=== PATIENT | female | born 1980 | race Caucasian/White ===

== ENCOUNTER → 2017-11-30 | Outpatient (CLI) | payer OTHER | END | disposition home or self-care (01) | LOC: MAMMO 07:45 | DX: Z12.31 Encounter for screening mammogram for malignant neoplasm of breast (principal) | CPT/HCPCS: 77063; 77067 ==

== ENCOUNTER → 2018-10-18 | Outpatient (CLI) | payer OTHER ==
[2018-10-18 09:20] LABS: HEMATOCRIT 44.7 % (36.0-47.0); RED BLOOD COUNT 5.16 x10^6/uL (3.50-5.40); RED CELL DISTRIBUTION WIDTH 13.2 % (11.5-14.5); WHITE BLOOD COUNT 7.1 x10^3/uL (4.0-11.0)
[2018-10-18 09:38] LABS: CREATININE 0.8 mg/dL (0.6-1.0); GFR 80.3; POTASSIUM 4.6 mmol/L (3.5-5.1)
[2018-10-18 09:43] LABS: CHOLESTEROL/HDL RATIO 3.2
== END | disposition home or self-care (01) ==
LOC: LAB 08:41
PROVIDERS: ATTEND Family Medicine
DX: Z00.00 Encounter for general adult medical examination without abnormal findings (principal); Z68.43 Body mass index [BMI] 50.0-59.9, adult
CPT/HCPCS: 36415; 80048; 80061; 84443; 85027

== ENCOUNTER → 2018-10-28 | Outpatient (CLI) | payer OTHER ==
--- NOTE | 2018-10-28 08:57 | RAD ---
Examination: PELVIS W/TV History: LLQ PAIN Comparison/Correlation: None Findings: Transabdominal and transvaginal pelvic ultrasound exam was performed. Transvaginal technique was utilized to better assess the adnexal structures. Uterus measures 9.2 cm x 5.2 cm x 4.8 cm. Myometrium is hypoechoic particularly at the fundus. Globular morphology of the uterus noted. Endometrial thickness of 0.7 cm noted. Intrauterine device is in place. There is no pelvic free fluid. Right adnexa measures 2.9 cm x 1.9 cm x 1.6 cm. Left ovary is obscured by bowel gas. No suspicious pelvic mass is suggested. Impression: Intrauterine device is in place. Diffuse fibroid involvement of the uterus. Electronically signed by: Segre Manzano MD (10/28/2018 8:55 AM) [id number]
--- NOTE | 2018-10-28 09:04 | RAD ---
Examination: ABDOMEN COMPLETE History: llq pain Comparison/Correlation: None Findings: Complete abdominal ultrasound exam was performed. Mild fatty infiltration of the liver is present. Portal venous flow is unremarkable. Liver length is 17 cm. Cholecystectomy noted. Common bile duct measures 0.4 cm diameter. Right kidney measures 10.7 cm x 5.2 cm 4.9 cm. Left kidney measures 11.9 cm x 5 cm diameter. No hydronephrosis. No nephrolithiasis. Renal contours are unremarkable. Proximal pancreas is unremarkable. Distal pancreas is obscured by bowel gas. No ascites. Spleen is unremarkable. Impression: Fatty infiltration of liver. No acute process. Cholecystectomy. Electronically signed by: Serge Manzano MD (10/28/2018 9:01 AM) [id number]
== END | disposition home or self-care (01) ==
LOC: US 06:13
PROVIDERS: ATTEND Family Medicine
DX: K76.0 Fatty (change of) liver, not elsewhere classified (principal); D25.9 Leiomyoma of uterus, unspecified
CPT/HCPCS: 76700; 76830; 76856

== ENCOUNTER → 2018-11-19 | Outpatient (CLI) | payer OTHER ==
[~2018-11-19] MED LIST: IOHEXOL 240 MG/ML 50ML VIAL. PO ONE; IOHEXOL 300 MG/ML 100ML VIAL. IV ONE
--- NOTE | 2018-11-19 11:30 | RAD ---
EXAM: CT Abdomen and Pelvis with IV contrast CLINICAL HISTORY: Left lower quadrant pain. COMPARISON: Ultrasound abdomen, ultrasound pelvis 10/28/2018 TECHNIQUE: Helical CT of the abdomen and pelvis was performed following the administration of intravenous contrast. Axial, coronal and sagittal reformatted images were generated. PQRS compliance statement - One or more of the following individualized dose reduction techniques were utilized for this study: 1. Automated exposure control 2. Adjustment of the mA and/or kV according to patient size 3. Use of iterative reconstruction technique FINDINGS: Lower chest: Lung bases are clear. Abdomen and Pelvis: No focal liver lesion. Liver is enlarged measuring 21.4 cm in length. There has been a cholecystectomy. No biliary ductal dilatation. Pancreas is unremarkable. Adrenal glands are normal. Spleen is normal in appearance. Small splenule is seen. Symmetric nephrograms. No focal renal lesion. No hydronephrosis. No hydroureter. Evaluation of uterine adnexa are limited. IUD is seen within the uterus. The bladder is decompressed, otherwise unremarkable. Appendix is normal. Moderate colonic stool content is seen. No evidence of bowel obstruction. No abdominal or pelvic lymphadenopathy. No abdominal or pelvic ascites. Bones: Sclerotic bone lesions are seen within the spine, of uncertain clinical significance. For example a 1.2 cm T10 lesion is seen and a L3 lesion measures 2 x 2.6 cm. A 1.7 cm right iliac wing sclerotic lesion is seen. SI joint degenerative changes are noted. IMPRESSION: 1. Sclerotic foci within several vertebral bodies and right iliac bone are nonspecific. Sclerotic bone lesions may be seen with metastatic disease. This can be correlated for possible primary malignancy and consider further evaluation with bone scan. 2. No free or loculated abdominal or pelvic fluid collection. 3. Moderate colonic stool content is seen. No evidence for bowel obstruction. 4. An IUD seen within the uterus. 5. Hepatomegaly Electronically signed by: Valdez Wynne MD (11/19/2018 11:27 AM) [id number]
== END | disposition home or self-care (01) ==
LOC: CT 08:39
PROVIDERS: ATTEND Family Medicine
DX: R16.0 Hepatomegaly, not elsewhere classified (principal); G95.89 Other specified diseases of spinal cord; M89.8X8 Other specified disorders of bone, other site; Z90.49 Acquired absence of other specified parts of digestive tract
CPT/HCPCS: 74177

== ENCOUNTER → 2018-11-22 | Outpatient (CLI) | payer OTHER ==
[2018-11-22 09:21] LABS: ALBUMIN 3.9 g/dL (3.4-5.0); ALBUMIN/GLOBULIN RATIO 1.1 (1.0-1.7); CALCIUM 9.3 mg/dL (8.5-10.1); CREATININE 0.8 mg/dL (0.6-1.0); GFR 80.3; POTASSIUM 4.6 mmol/L (3.5-5.1); TOTAL PROTEIN 7.5 g/dL (6.4-8.2)
== END | disposition home or self-care (01) ==
LOC: LAB 08:46
PROVIDERS: ATTEND Family Medicine
DX: M89.9 Disorder of bone, unspecified (principal)
CPT/HCPCS: 36415; 80053

== ENCOUNTER → 2018-12-02 | Outpatient (CLI) | payer OTHER ==
--- NOTE | 2018-12-02 09:45 | RAD ---
DATE: 12/02/2018 EXAM: MAMMO GALEN SCREENING BILATERAL HISTORY: Routine screening COMPARISON: 11/30/2017 This study was interpreted with the benefit of Computerized Aided Detection (CAD). Breast Density: SCATTERED The breast parenchyma shows scattered fibroglandular densities. Breast parenchyma level B. FINDINGS: 2-D and 3-D tomosynthesis imaging was performed in CC and MLO projections. No suspicious breast density or architectural distortion is seen. No suspicious microcalcifications are evident. IMPRESSION: There is no mammographic evidence of malignancy in either breast. BI-RADS CATEGORY: 1 NEGATIVE RECOMMENDED FOLLOW-UP: 12M 12 MONTH FOLLOW-UP PQRS compliance statement: Patient information was entered into a reminder system with a target due date for the next mammogram. Mammography is a sensitive method for finding small breast cancers, but it does not detect them all and is not a substitute for careful clinical examination. A negative mammogram does not negate a clinically suspicious finding and should not result in delay in biopsying a clinically suspicious abnormality. "Our facility is accredited by the [employer] Mammography Program."
== END | disposition home or self-care (01) ==
LOC: MAMMO 08:24
PROVIDERS: ATTEND Obstetrics & Gynecology
DX: Z12.31 Encounter for screening mammogram for malignant neoplasm of breast (principal)
CPT/HCPCS: 77063; 77067

== ENCOUNTER → 2019-05-29 | Outpatient (CLI) | payer OTHER ==
[2019-05-30 17:09] LABS: RUBELLA IGG ANTIBODY 2.53 index (Immune >0.99)
== END | disposition home or self-care (01) ==
LOC: LAB 12:15
PROVIDERS: ATTEND Family Medicine
DX: Z02.89 Encounter for other administrative examinations (principal)
CPT/HCPCS: 36415; 86706; 86735; 86762; 86765; 86787; 87340

== ENCOUNTER → 2019-07-25 | Outpatient (CLI) | payer OTHER | END | disposition home or self-care (01) | LOC: LAB 10:34 | PROVIDERS: ATTEND Family Medicine | DX: Z01.84 Encounter for antibody response examination (principal) | CPT/HCPCS: 36415; 86706; 86735; 86762; 86765 ==

== ENCOUNTER → 2019-07-25 | Outpatient (CLI) | payer OTHER ==
[2019-07-25 11:12] LABS: BASO # 0.1 x10^3/uL (0.0-0.2); BASO % 2 % (0-3); EOS # 0.2 x10^3/uL (0.0-0.7); EOS % 4 % (0-3); HEMATOCRIT 45.5 % (36.0-47.0); HEMOGLOBIN 15.4 g/dL (12.0-15.5); LYMPH % 19 % (24-48); MEAN CORPUSCULAR HEMOGLOBIN 29 pg (25-35); MEAN CORPUSCULAR HGB CONC 34 g/dL (31-37); MEAN CORPUSCULAR VOLUME 86 fL (79-100); MONO # 0.3 x10^3/uL (0.0-1.1); MONO % 5 % (0-9); NEUT # 3.7 x10^3/uL (1.8-7.7); NEUT % 70 % (31-73); PLATELET COUNT 314 x10^3/uL (140-400); RED BLOOD COUNT 5.31 x10^6/uL (3.50-5.40); RED CELL DISTRIBUTION WIDTH 13.2 % (11.5-14.5); WHITE BLOOD COUNT 5.2 x10^3/uL (4.0-11.0)
[2019-07-25 11:42] LABS: ALBUMIN 4.3 g/dL (3.4-5.0); ALBUMIN/GLOBULIN RATIO 1.2 (1.0-1.7); CALCIUM 9.4 mg/dL (8.5-10.1); CREATININE 0.8 mg/dL (0.6-1.0); GFR 79.9; POTASSIUM 4.4 mmol/L (3.5-5.1); TOTAL BILIRUBIN 1.1 mg/dL (0.2-1.0); TOTAL PROTEIN 7.8 g/dL (6.4-8.2)
[2019-07-25 22:07] LABS: FSH 7.8 mIU/mL (.); LUTEINIZING HORMONE 5.2 mIU/mL (.); PROGESTERONE <0.1 ng/mL (.)
[2019-07-26 00:07] LABS: HEMOGLOBIN A1C 5.7 % (4.8-5.6)
== END | disposition home or self-care (01) ==
LOC: LAB 10:39
PROVIDERS: ATTEND Nurse Practitioner Women's Health
DX: R23.2 Flushing (principal)
CPT/HCPCS: 36415; 80053; 82670; 83001; 83002; 83036; 84144; 84443; 85025

== ENCOUNTER 2019-08-22 17:39 | Emergency (ER) | payer OTHER ==
[~2019-08-22] VITALS: Ht 172.7 cm; Wt 145.5 kg
--- NOTE | 2019-08-22 19:08 | RAD ---
Exam: Right lower extremity venous duplex study INDICATION: Leg swelling TECHNIQUE: Using a combination of real-time ultrasound imaging and color-flow and pulse Doppler imaging techniques along with graded compression and augmentation, duplex evaluation of the deep venous systems of rightlower extremity was performed. Multiple images were obtained. Findings: Occlusive thrombus is noted within the greater saphenous vein at the level of the calf measuring approximately 10 cm. There is no sonographic evidence for deep venous thrombosis involving the visualized deep venous structures of the right lower extremity. IMPRESSION: 1. Superficial occlusive thrombus within the greater saphenous vein at the level of the calf. 2. No DVT in the right lower extremity. Electronically signed by: Clara Flannery MD (08/22/2019 7:05 PM) [id number]
[2019-08-22 19:19] VITALS: BP 151/86
[2019-08-22] MEDS ORDERED: ONDANSETRON ODT 4 MG TAB.RAPDIS. PO ONE (19:45)
--- NOTE | 2019-08-22 19:51 | PHYS DOC ---
Past Medical History Past Medical History: Hypertension (TAMICA ALVARADO APRN) Past Surgical History: Cholecystectomy, (TAMICA ALVARADO APRN) Smoking Status: Never Smoker Alcohol Use: None (TAMICA ALVARADO APRN) Attending Signature I have participated in the care of this patient and I have reviewed and agree with all pertinent clinical information above including history, exam, and recommendations. (TIERRA GALLOWAY MD) Adult General Chief Complaint Chief Complaint: LOWER EXT PAIN HPI HPI Patient is a 39 year old female with history of hypertension who presents to the ED today complaining of a knot on the right lozoya that she noted a couple weeks ago with slight redness and pain shooting to her right toes. Patient states symptoms of got worse in the last couple days. 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 Patient denies any injury, denies any chance she is . Denies any fever. Denies any use of hormones, denies any recent hospitalizations. Denies any personal family history of DVTs. Reports being on mirena (TAMICA ALVARADO APRN) Review of Systems Review of Systems Constitutional: Denies fever or chills [] Musculoskeletal: Reports a note on the right lower extremity Integument: Denies rash or skin lesions [] Neurologic: Denies headache, focal weakness or sensory changes [] All other systems were reviewed and found to be within normal limits, except as documented in this note. (TAMICA ALVARADO APRN) Current Medications Current Medications Current Medications Medications (Trade) Dose Ordered Sig/Ben Start Time Stop Time Status Last Admin Dose Admin Ondansetron HCl (Zofran Odt) 4 mg 1X ONCE 08/22/19 19:45 08/22/19 19:46 DC 08/22/19 19:17 4 MG (TIERRA GALLOWAY MD) Allergies Allergies Allergies Coded Allergies Type Severity Reaction Last Updated Verified No Known Drug Allergies 11/19/18 No (TIERRA GALLOWAY MD) Physical Exam Physical Exam Constitutional: Well developed, well nourished, no acute distress, non-toxic appearance. [] Skin: Warm, dry, no erythema, no rash. [] Back: No tenderness, no CVA tenderness. [] Extremities: Morbidly obese patient with multiple large varicose veins to bilateral lower extremities. Mild soft tissue swelling on the anterior aspect of the proximal lozoya. Negative Homans sign to the right lower extremity. +2 right pedal pulse, ROM intact Neurologic: Alert and oriented X 3, normal motor function, normal sensory function, no focal deficits noted. [] Psychologic: Affect normal, judgement normal, mood normal. [] (TAMICA ALVARADO APRN) Current Patient Data Vital Signs Vital Signs Date Time Temp Pulse Resp B/P (MAP) Pulse Ox O2 Delivery O2 Flow Rate FiO2 08/22/19 19:19 107 18 151/86 (107) 98 Room Air 08/22/19 18:10 97.8 97.8 (TIERRA GALLOWAY MD) EKG EKG [] (TAMICA ALVARADO APRN) Radiology/Procedures Radiology/Procedures []PROCEDURE: VENOUS LOWER EXTREMITY RIGHT Exam: Right lower extremity venous duplex study INDICATION: Leg swelling TECHNIQUE: Using a combination of real-time ultrasound imaging and color-flow and pulse Doppler imaging techniques along with graded compression and augmentation, duplex evaluation of the deep venous systems of rightlower extremity was performed. Multiple images were obtained. Findings: Occlusive thrombus is noted within the greater saphenous vein at the level of the calf measuring approximately 10 cm. There is no sonographic evidence for deep venous thrombosis involving the visualized deep venous structures of the right lower extremity. IMPRESSION: 1. Superficial occlusive thrombus within the greater saphenous vein at the level of the calf. 2. No DVT in the right lower extremity. Electronically signed by: Clara Quinteros MD (08/22/2019 7:05 PM) [id number] DICTATED and SIGNED BY: CLARA QUINTEROS MD DATE: 08/22/191904 (TAMICA ALVARADO APRN) Course & Med Decision Making Course & Med Decision Making Pertinent Labs and Imaging studies reviewed. (See chart for details) This is a 39-year-old female patient presenting to the ED today complaining of a knot to the right lower extremity. Venous Doppler of the right lower extremity was negative for DVT, noted for superficial thrombus. Consulted with Dr. Galloway. Discharged to home with recommendation for aspirin and follow-up with PCP in the next week. (TAMICA ALVARADO APRN) Dragon Disclaimer Dragon Disclaimer This electronic medical record was generated, in whole or in part, using a voice recognition dictation system. (TAMICA ALVARADO APRN) Departure Departure Impression: Primary Impression: Superficial thrombosis of leg Additional Impression: Varicose veins of lower extremity Disposition: HOME, SELF-CARE Condition: STABLE Referrals: TATO WALTERS MD (PCP) follow up next week Patient Instructions: Varicose Veins Additional Instructions: You were evaluated in the emergency room and noted to have superficial thrombosis to the right lower extremity. You can take aspirin 325 mg daily for 2 weeks for this and consider following up with the primary care doctor as soon as you can. Try to wear compression stockings if you can find appropriate size. Try and ice and elevate your extremities. Problem Qualifiers Primary Impression: Superficial thrombosis of leg Laterality: right Qualified Codes: I82.811 - Embolism and thrombosis of superficial veins of right lower extremity Additional Impression: Varicose veins of lower extremity Varicose vein complication: unspecified Laterality: right Qualified Codes: I83.91 - Asymptomatic varicose veins of right lower extremity TAMICA ALVARADO APRN Aug 22, 2019 19:51 TIERRA GALLOWAY MD Aug 22, 2019 22:27
== END 2019-08-22 20:00 | disposition home or self-care (01) ==
LOC: ER 17:39
DX: I82.811 Embolism and thrombosis of superficial veins of right lower extremity (principal); I83.91 Asymptomatic varicose veins of right lower extremity; M79.674 Pain in right toe(s); L53.9 Erythematous condition, unspecified; R22.41 Localized swelling, mass and lump, right lower limb; I10 Essential (primary) hypertension; Z90.49 Acquired absence of other specified parts of digestive tract; Z98.890 Other specified postprocedural states
CPT/HCPCS: 93971; 99284; Q0162

== ENCOUNTER → 2019-08-27 | Outpatient (CLI) | payer OTHER ==
[2019-08-22 19:19] VITALS: BP 151/86
--- NOTE | 2019-08-27 12:30 | KCIC ---
Right lower extremity venous duplex study 08/27/2019 12:25 PM Clinical History: Increasing right lower extremity pain. Evaluate for progression of superficial venous thrombosis, or presence of deep venous thrombosis. Technique: Using a combination of real time ultrasound imaging and color-flow and pulse Doppler imaging techniques, including spectral analysis, graded compression and augmentation, duplex evaluation of the deep venous system of the right lower extremity was performed. Multiple images were obtained. Findings: There is persistent superficial venous thrombosis involving the saphenous vein from the knee distally. Thrombosed varicosities are also seen in the distal leg. There is no sonographic evidence of deep venous thrombosis involving the visualized deep venous structures of the right lower extremity Impression: 1. Similar superficial venous thrombosis involving the great saphenous vein, and associated varicosities 2.No evidence of deep venous thrombosis involving the right lower extremity Electronically signed by: Jesse Mckeon MD (08/27/2019 12:26 PM) [facility]
== END | disposition home or self-care (01) ==
LOC: KCIC US 11:22
PROVIDERS: ATTEND Family Medicine
DX: I82.811 Embolism and thrombosis of superficial veins of right lower extremity (principal)
CPT/HCPCS: 93971

== ENCOUNTER → 2019-11-26 | Outpatient (CLI) | payer OTHER ==
--- NOTE | 2019-11-27 07:30 | RAD ---
MR#: [id number] Date of Study: 11/26/2019 Ordering Physician: SILAS CASILLAS, Referring Physician: SILAS CASILLAS, Tech: HALIMA Nguyen, RDAZ, RTR APPROVED REPORT Bilateral Lower Extremity Venous Study for DVT Patient Location: OUT-PATIENT Indications Lower Extremity Pain: Varicose Veins Findings Technically limited study due to the patient's body habitus The bilateral common femoral veins and proximal superficial femoral veins are compressible on graysca le images. The bilateral popliteal veins are compressible on grayscale images. The mid to distal robles perficial femoral veins in the below-knee veins are not well visualized and grossly appear to demonst rate spontaneous flow on color Doppler imaging. Critical Notification Critical Value: No <Conclusion> 1. Negative for DVT, technically limited study. Signed by : Silas Casillas, Electronically Approved : 11/27/2019 07:30:04
--- NOTE | 2019-11-27 07:35 | RAD ---
MR#: [id number] Date of Study: 11/26/2019 Ordering Physician: SILAS CASILLAS, Referring Physician: SILAS CASILLAS, Tech: HALIMA Nguyen, RDMS, RTR APPROVED REPORT Patient Location : OUT-PATIENT Indications Varicose Veins Skin Changes Risk Factors Obesity Prior Phlebitis/DVT Medications xeralto Findings Technically limited study due to the patient's body habitus The left great saphenous vein measures 10.2 mm and has a maximum reflux time of 2.2 seconds. The gre ater saphenous vein is tortuous and superficial at the level of the knee on the left side. The right great saphenous vein measures 11.8 mm and has a maximum reflux time of 1.7 seconds. The mi d to distal right great saphenous vein appears to be thrombosed and multiple superficial varicosities are noted. The bilateral lesser saphenous veins do not show any evidence of reflux. There are bilateral anterior accessory saphenous veins which also demonstrated reflux of greater than 1 second measuring approximately 4.2 mm bilaterally. Critical Notification Critical Value: No <Conclusion> 1. Positive for reflux in the bilateral greater saphenous veins. 2. Positive for reflux in the bilateral anterior accessory saphenous veins 3. Negative for reflux in the bilateral lesser saphenous veins 4. Partial thrombosis of the right great saphenous vein. Signed by : Silas Casillas, Electronically Approved : 11/27/2019 07:35:29
== END | disposition home or self-care (01) ==
LOC: US 10:26
PROVIDERS: ATTEND Internal Medicine Cardiovascular Disease
DX: I82.811 Embolism and thrombosis of superficial veins of right lower extremity (principal); Z79.01 Long term (current) use of anticoagulants
CPT/HCPCS: 93970

== ENCOUNTER → 2019-11-26 | Outpatient (CLI) | payer OTHER ==
--- NOTE | 2019-11-26 11:44 | CARD ---
MR#: [id number] Date of Study: 11/26/2019 Ordering Physician: SILAS CASILLAS, Referring Physician: SILAS CASILLAS, Tech: Poornima Casey BRIAN APPROVED REPORT EXAM: Two-dimensional and M-mode echocardiogram with Doppler and color Doppler. Other Information Quality : Fair INDICATION Hypertension/HCVD Morbid Obesity 2D DIMENSIONS RVDd3.1 (2.9-3.5cm)Left Atrium(2D)3.8 (1.6-4.0cm) IVSd1.1 (0.7-1.1cm)Aortic Root(2D)2.7 (2.0-3.7cm) LVDd6.0 (3.9-5.9cm)LVOT Diameter2.1 (1.8-2.4cm) PWd1.1 (0.7-1.1cm)LVDs5.2 (2.5-4.0cm) FS (%) 12.3 %SV46.5 ml LVEF(%)26.1 (>50%) M-Mode DIMENSIONS LVDd6.01 (4.0-5.6cm)FS (%) 13 % LVDs5.20 (2.0-3.8cm)ESV(Teich)129.5 ml LVEF(%)28 (>50%) Aortic Valve AoV Peak Dustin.145.3cm/sAoV VTI28.6cm AO Peak GR.8.4mmHgLVOT Peak Dustin.100.3cm/s AO Mean GR.5mmHgAVA (VMAX)2.38cm2 Mitral Valve MV E Juoaqztc639.8cm/sMV DECEL LTKY877fj MV A Gyrmmpqz07.7cm/sE/A Ratio2.0 Tricuspid Valve TR P. Zwtdtzku683ir/sRAP NJRLLIEF1coMr TR Peak Gr.79zlFuPBIF89ajDb Pulmonary Vein S1 Udtawqyj30.8cm/sD2 Rznlpqmc46.7cm/s LEFT VENTRICLE The left ventricle is normal size. There is normal left ventricular wall thickness. Left ventricle sy stolic function is normal. The Ejection Fraction is 55-60%. There is normal LV segmental wall motion. The left ventricular diastolic function and filling is normal for age. RIGHT VENTRICLE The right ventricle is normal size. The right ventricular systolic function is normal. ATRIA The left atrium size is normal. The right atrium size is normal. The interatrial septum is intact wit h no evidence for an atrial septal defect or patent foramen ovale as noted on 2-D or Doppler imaging. AORTIC VALVE The aortic valve is calcified but opens well. Doppler and Color Flow revealed no significant aortic r egurgitation. There is no significant aortic valvular stenosis. MITRAL VALVE The mitral valve is normal in structure and function. There is no evidence of mitral valve prolapse. There is no mitral valve stenosis. Doppler and Color-flow revealed trace mitral regurgitation. TRICUSPID VALVE The tricuspid valve is normal in structure and function. Doppler and Color Flow revealed trace tricus pid regurgitation. The PA pressure was estimated at 26 mmHg. There is no tricuspid valve stenosis. PULMONIC VALVE The pulmonic valve is not well visualized. Doppler and Color Flow revealed no pulmonic valvular regur gitation. There is no pulmonic valvular stenosis. GREAT VESSELS The aortic root is normal in size. The ascending aorta is not well seen. The IVC is normal in size an d collapses >50% with inspiration. PERICARDIAL EFFUSION There is no evidence of significant pericardial effusion. Critical Notification Critical Value: No <Conclusion> Left ventricle systolic function is normal. The Ejection Fraction is 55-60%. There is normal LV segmental wall motion. Trace mitral regurgitation. Trace tricuspid regurgitation. The PA pressure was estimated at 26 mmHg. There is no evidence of significant pericardial effusion. Signed by : Lopez Alvarez, Electronically Approved : 11/26/2019 11:44:03
== END | disposition home or self-care (01) ==
LOC: ECHO 10:21
PROVIDERS: ATTEND Internal Medicine Cardiovascular Disease
DX: I35.8 Other nonrheumatic aortic valve disorders (principal); I10 Essential (primary) hypertension; E66.01 Morbid (severe) obesity due to excess calories
CPT/HCPCS: 93306

== ENCOUNTER → 2019-12-11 | Outpatient (CLI) | payer OTHER ==
--- NOTE | 2019-12-12 08:25 | RAD ---
INDICATION: 39 years of age asymptomatic female patient presents for screening mammography. TECHNIQUE: Full field craniocaudal and mediolateral oblique images of both breasts were obtained using digital technique with tomosynthesis and also analyzed with computer-aided detection software. COMPARISON: Prior mammographic imaging dating back to 11/30/2017. BREAST COMPOSITION: Category B: There are scattered fibroglandular densities. FINDINGS: A skin marker overlies the right breast. The parenchymal pattern appears stable. No suspicious masses, microcalcifications or architectural distortion is present to suggest malignancy in either breast. The visualized axillae are unremarkable. IMPRESSION: No mammographic evidence of malignancy. RECOMMENDATION: Annual screening mammography is recommended, unless clinically indicated sooner based on symptoms or change in physical exam. BIRADS 2: BENIGN Electronically signed by: Valdez Wynne MD (12/12/2019 8:22 AM) [facility]
== END | disposition home or self-care (01) ==
LOC: MAMMO 13:30
PROVIDERS: ATTEND Family Medicine
DX: Z12.31 Encounter for screening mammogram for malignant neoplasm of breast (principal)
CPT/HCPCS: 77063; 77067

== ENCOUNTER → 2019-12-31 | Outpatient (CLI) | payer OTHER ==
--- NOTE | 2019-12-31 11:54 | RAD ---
MR#: [id number] Date of Study: 12/31/2019 Ordering Physician: SILAS CASILLAS, Referring Physician: SILAS CASILLAS, Tech: Rafi Epperson MBA, RDMS, RVT, RDCS, RTR APPROVED REPORT Bilateral Lower Extremity Venous Study for DVT Patient Location: OUT-PATIENT Indications S/P B/L VENASEALS Vein Imaging (Right) CFV (R): Compressible SFJ (R): Compressible FEM (R): Compressible POP (R): Compressible DFV (R): Compressible PTV (R): Spontaneous GSV (R): Absent Flow Peroneals (R): Spontaneous Vein Imaging (Left) CFV (L): Compressible SFJ (L): Compressible FEM (L): Compressible POP (L): Compressible DFV (L): Compressible PTV (L): Spontaneous GSV (L): Absent Flow Peroneals (L): Spontaneous Doppler Evaluation (Right) CFV (R): Spontaneous POP (R):Spontaneous Doppler Evaluation (Left) CFV (L):Spontaneous POP (L):Spontaneous Findings Grayscale images of the bilateral saphenofemoral junctions did not reveal any obvious evidence of thr ombus. The bilateral greater saphenous veins are notable for recent ablation with thrombus consisten t with recent procedure. There is a incidental right sided Zapata's cyst noted in the popliteal fossa measuring approximately 5 .1 cm. No evidence of DVT is demonstrated from the common femoral vein to the below-knee veins bilaterally w ith normal compressibility noted. Critical Notification Critical Value: No <Conclusion> 1. Negative for DVT in the bilateral lower extremities 2. Successful bilateral GSV ablation. Signed by : Silas Casillas, Electronically Approved : 12/31/2019 11:54:13
== END ==
LOC: US 09:38
PROVIDERS: ATTEND Internal Medicine Cardiovascular Disease
DX: I87.2 Venous insufficiency (chronic) (peripheral) (principal); M71.21 Synovial cyst of popliteal space [Baker], right knee
CPT/HCPCS: 93970

== ENCOUNTER → 2020-01-06 | Outpatient (CLI) | payer OTHER | END | disposition home or self-care (01) | LOC: SPEC 11:23 | PROVIDERS: ATTEND Obstetrics & Gynecology | DX: Z01.419 Encounter for gynecological examination (general) (routine) without abnormal findings (principal) | CPT/HCPCS: 88175 ==

== ENCOUNTER → 2020-02-24 | Outpatient (CLI) | payer OTHER ==
--- NOTE | 2020-02-25 11:55 | SLEEP ---
DATE OF STUDY: 02/24/2020 SLEEP STUDY ATTENDING PHYSICIAN: Silas Rich MD The patient is 39 years old who weighs 330 pounds with a BMI of 50. The patient's [place] score was 11. The patient underwent diagnostics sleep study performed at [facility]. During the night study, the patient spent 431 minutes in bed and slept for 303 minutes with a sleep efficiency of 70%. Sleep latency was 38 minutes with a REM latency of 175 minutes. Sleep architecture showed increased stage 1 sleep, normal stage 2 sleep, increased slow wave and reduced REM sleep. During the night study, the patient had no obstructive apneas. There were 6 mixed apneas and 3 central apneas and 5 hypopneas. The patient's AHI was 3 per hour, supine AHI 1 per hour and REM AHI of 10 per hour. EKG monitoring revealed normal sinus rhythm, average heart rate was 77 beats per minute, no sustained arrhythmias observed. PLMS were seen at index of 13 per hour and 2 per hour caused EEG arousals. Nocturnal oximetry study revealed a mean oxygen saturation of 94% with the lowest of 87%. Only 3.8% of time oxygen saturation remained between 80% and 89%. Due to low AHI, the patient did not meet the split night criteria for CPAP initiation. IMPRESSION: 1. No clinically significant sleep disorder breathing. The patient's AHI for the entire night was 3 per hour. 2. No clinically significant nocturnal hypoxia. 3. Mild PLMS without any significant EEG arousals. This does not need to be treated. RECOMMENDATIONS: 1. The patient did not meet the criteria for CPAP initiation. 2. If the patient remains clinically symptomatic, then consider ruling out other disorders such as narcolepsy or idiopathic hypersomnia and consider doing MSLT if clinically indicated. 3. Weight loss is strongly advised. 4. Avoid [employer]ER depressants. 5. Cautioned regarding driving until the patient's hypersomnia is resolved. SOULEYMANE OSBORN MD DR: VIKASH/sincere JOB#: [id number] / [id number] SILAS Casanova MD
== END | disposition home or self-care (01) ==
LOC: SLPLAB 18:38
PROVIDERS: ATTEND Internal Medicine Critical Care Medicine
DX: G47.33 Obstructive sleep apnea (adult) (pediatric) (principal)
CPT/HCPCS: 95810

== ENCOUNTER → 2020-05-23 | Outpatient (CLI) | payer OTHER | LOC: LAB 10:15 | PROVIDERS: ATTEND Internal Medicine Pulmonary Disease | DX: U07.1 COVID-19 (principal); R05 Cough; R51.9 Headache, unspecified; R09.81 Nasal congestion; M79.10 Myalgia, unspecified site; R06.02 Shortness of breath | CPT/HCPCS: U0003 ==

== ENCOUNTER → 2020-07-06 | Outpatient (CLI) | payer OTHER | LOC: SPEC 11:36 | PROVIDERS: ATTEND Obstetrics & Gynecology | DX: R87.619 Unspecified abnormal cytological findings in specimens from cervix uteri (principal) | CPT/HCPCS: 88175 ==

== ENCOUNTER → 2020-12-28 | Outpatient (CLI) | payer OTHER ==
--- NOTE | 2020-12-28 09:40 | RAD ---
PROCEDURE: MG BILAT SCREEN+GALEN HISTORY: The patient is 40 years old and is seen for Reason: screening mammogram / Spl. Instructions: / History: . COMPARISON: December 11, 2019 TECHNIQUE: CC and MLO views of both breasts were obtained. Images were processed by the [employer] computer-aided detection system. DENSITY: There are scattered fibroglandular densities. FINDINGS: No developing mass, suspicious calcifications or architectural distortion. IMPRESSION: Negative. No evidence of malignancy. Recommend annual screening mammograms per [employer] guidelines. She will be due in one year. BI-RADS category 1 Negative Patient entered into a reminder system for annual screening mammogram. Electronically signed by: Augustin Alcantara DO (12/28/2020 9:38 AM) [id number]
== END ==
LOC: MAMMO 07:47
PROVIDERS: ATTEND Obstetrics & Gynecology
DX: Z12.31 Encounter for screening mammogram for malignant neoplasm of breast (principal)
CPT/HCPCS: 77063; 77067